=== PATIENT | male | born 1965 | race Caucasian/White ===

== ENCOUNTER → 2016-09-17 | Outpatient (CLI) | payer BC ==
[~2016-09-17] MED LIST: MELO7.5O PO
--- NOTE | 2016-09-17 17:13 | DI ---
Indication: ITS.REASON: S90.112A Contusion of left great toe without damage to nail, init PROCEDURE: TOES LEFT 2 VIEW MINIMUM: Encounter: Initial Comparison: None Findings: There is no acute fracture, dislocation or malalignment identified. Mild degenerative change at the first metatarsophalangeal joint with lateral osteophytes. Impression: No acute osseous abnormality. .
--- NOTE | 2016-09-17 17:13 | DI ---
Indication: ITS.REASON: M25.551 PAIN IN RT HIP PROCEDURE: HIP RIGHT 2 VIEW: Encounter: Initial Comparison: None Findings: There is no acute fracture, dislocation or malalignment identified. No joint space narrowing or significant degenerative change appreciated. Impression: No acute osseous abnormality. .
== END ==
LOC: IMA 16:39
PROVIDERS: ATTEND Family Medicine
DX: M19.072 Primary osteoarthritis, left ankle and foot (principal); M25.551 Pain in right hip